=== PATIENT | female | born 1955 | race Hispanic/Latino ===

== ENCOUNTER 2017-12-10 15:22 | Outpatient (CLI) | payer OTHER | END 2017-12-10 15:23 | disposition home or self-care (01) | LOC: BICRAD 15:22 | PROVIDERS: ATTEND Internal Medicine | DX: Z02.71 Encounter for disability determination (principal) | CPT/HCPCS: 72100 ==

== ENCOUNTER 2018-01-28 22:07 | Emergency (ER) | payer BC, SELFPAY ==
[~2018-01-28 22:07] MED LIST: ISOVUE-370 76%-LOCM 1 ML ONE
[2018-01-28 22:48] LABS: Bilirubin Negative (Negative); Blood, Urine Negative (Negative); Clarity CLEAR (Clear); Glucose, Urine (Dipstick) 250 mg/dL (Negative); Leukocyte Negative (Negative); Nitrite Negative (Negative); Protein, Urine (Dipstick) Negative (Neg-Trace); Specific Gravity, Urine 1.013 (1.002-1.036)
[2018-01-28 22:55] LABS: #Eosinphils 0.3 thou/uL (0.0-0.7); #Lymphocytes 1.9 thou/uL (1.20-3.40); #Monocytes 0.3 thou/uL (0.11-0.59); #Neutrophils 4.9 thou/uL (1.40-6.50); %Basophils 0.5 % (0.0-1.0); %Eosinophils 3.5 % (0.0-10.0); %Lymphocytes 25.3 % (21.0-51.0); %Monocytes 4.5 % (0.0-10.0); %Neutrophils 66.2 % (42.0-75.0); Hemoglobin 14.1 g/dL (12.0-16.0); Mean Corpuscular HGB CONC 32.2 g/dL (32.0-36.0); Mean Corpuscular Hemoglobin 28.2 pg (27.0-31.0); Mean Corpuscular Volume 87.3 fL (78.0-98.0); Mean Platelet Volume 7.6 fL (7.4-10.4); Platelet Count 227 thou/uL (130-400); RBC Distribution Width 13.7 % (11.5-14.5); Red Blood Cell (RBC) Count 4.99 mill/uL (4.20-5.40); White Blood Cell (WBC) Count 7.3 thou/uL (4.8-10.8)
[2018-01-28 23:27] LABS: ALT (SGPT) 16 U/L (8-55); AST (SGOT) 21 U/L (5-34); Albumin 3.7 g/dL (3.4-4.8); Alkaline Phosphatase 162 U/L (40-150); Anion Gap 13 mmol/L (10-20); BUN (Urea Nitrogen) 11 mg/dL (9.8-20.1); Bilirubin, Total 0.3 mg/dL (0.2-1.2); Calc. Creatinine Clearance 0 mL/min (70-130); Calcium 9.3 mg/dL (7.8-10.44); Carbon Dioxide 28 mmol/L (23-31); Chloride 100 mmol/L (98-107); Estimated GFR-MDRD 49; Globulin 4.4 g/dL (2.4-3.5); Glucose 157 mg/dL (80-115); Potassium 3.7 mmol/L (3.5-5.1); Protein, Total 8.1 g/dL (6.0-8.3); Sodium 137 mmol/L (136-145)
[2018-01-28] MEDS ORDERED: Ondansetron ODT 8 MG TAB ONE (23:59)
[2018-01-29] MEDS ORDERED: Ketorolac Tromethamine 30 MG/ML VIAL ONE (01:05)
--- NOTE | 2018-01-29 10:56 | CT ---
PRELIMINARY REPORT/[facility]/EMERGENTY AFTER-HOURS PROCEDURE CT Abdomen and Pelvis With Intravenous Contrast CLINICAL HISTORY: 62 years old, female; Pain; Abdominal pain; Patient HX: Pt presents with llq pain that radiates to th e left side of her back for one week. Pt has had nausea with vomiting, but no fever, diarrhea, or uri nary symptoms. Pt was seen in a different er one week ago without definitive diagnosis. Pt reports h/ o kidney stones that she was able to pass on her own. TECHNIQUE: Axial computed tomography images of the abdomen and pelvis with intravenous contrast. Coronal reforma tted images were created and reviewed. COMPARISON: No relevant prior studies available. FINDINGS: Lung bases: No acute findings. ABDOMEN: Liver: No acute findings. No mass. Gallbladder and bile ducts: Prior cholecystectomy. Pancreas: No ductal dilation. No mass. Spleen: No acute findings. No mass. Adrenals: No mass. Kidneys and ureters: No acute findings. No hydronephrosis. No solid mass. Stomach and bowel: Fecal loading. Underdistended rectosigmoid segments. Diverticulosis. No evidence o f bowel obstruction. PELVIS: Appendix: No findings to suggest acute appendicitis. Bladder: No acute findings. No mass. Reproductive: No acute findings. ABDOMEN and PELVIS: Intraperitoneal space: No acute findings. No free air. No significant fluid collection. Bones/joints: No acute fracture. Degenerative changes of the spine. Soft tissues: No acute findings. Vasculature: No acute findings. No abdominal aortic aneurysm. Lymph nodes: No lymphadenopathy. IMPRESSION: No acute findings. Thank you for allowing us to participate in the care of your patient. Dictated and Authenticated by: Anil Hui MD 01/29/2018 1:47 AM Central Time ([place] & [place]) FINAL REPORT ABDOMEN CT WITH CONTRAST PELVIC CT WITH CONTRAST: Date: 01/28/18 HISTORY: Abdominal pain. Left lower quadrant pain. COMPARISON: 10/31/16. FINDINGS: This report is in agreement with the preliminary report by Brad. No acute findings in the abdomen or pelvis. Normal caliber appendix. Scattered fecal material in a nondistended, nondilated colon. POS: [facility]
== END 2018-01-29 02:40 | disposition home or self-care (01) ==
LOC: ERS 22:07
DX: R10.32 Left lower quadrant pain (principal); E11.9 Type 2 diabetes mellitus without complications; I10 Essential (primary) hypertension; F32.9 Major depressive disorder, single episode, unspecified; Z87.442 Personal history of urinary calculi
CPT/HCPCS: 36415; 74177; 80053; 81003; 83690; 85025; 96361; 96374; 96375; J1885; J2270

== ENCOUNTER 2018-02-05 11:51 | Emergency (ER) | payer SELFPAY ==
[2018-02-05] MEDS ORDERED: Morphine 10 MG/ML VIAL ONE (12:12)
[2018-02-05] MEDS ORDERED: Ondansetron ODT 8 MG TAB ONE (12:13)
== END 2018-02-05 12:31 | disposition home or self-care (01) ==
LOC: ERS 11:51
DX: M54.16 Radiculopathy, lumbar region (principal); E11.9 Type 2 diabetes mellitus without complications; I10 Essential (primary) hypertension; F32.9 Major depressive disorder, single episode, unspecified; Z79.899 Other long term (current) drug therapy; Z79.4 Long term (current) use of insulin
CPT/HCPCS: 96372; J2270

== ENCOUNTER 2018-04-10 18:55 | Observation (INO) | payer MEDICAID, SELFPAY ==
[2018-04-10 20:01] LABS: #Eosinphils 0.1 thou/uL (0.0-0.7); #Lymphocytes 2.3 thou/uL (1.20-3.40); #Monocytes 0.5 thou/uL (0.11-0.59); #Neutrophils 6.1 thou/uL (1.40-6.50); %Basophils 0.2 % (0.0-1.0); %Eosinophils 1.3 % (0.0-10.0); %Lymphocytes 24.9 % (21.0-51.0); %Monocytes 5.9 % (0.0-10.0); %Neutrophils 67.7 % (42.0-75.0); Hemoglobin 13.9 g/dL (12.0-16.0); Mean Corpuscular HGB CONC 33.1 g/dL (32.0-36.0); Mean Corpuscular Hemoglobin 28.5 pg (27.0-31.0); Mean Corpuscular Volume 86.2 fL (78.0-98.0); Mean Platelet Volume 8.3 fL (7.4-10.4); Platelet Count 230 thou/uL (130-400); RBC Distribution Width 14.2 % (11.5-14.5); Red Blood Cell (RBC) Count 4.88 mill/uL (4.20-5.40)
[2018-04-10 20:36] LABS: ALT (SGPT) 66 U/L (8-55); AST (SGOT) 89 U/L (5-34); Albumin 3.6 g/dL (3.4-4.8); Alkaline Phosphatase 224 U/L (40-150); Anion Gap 14 mmol/L (10-20); BUN (Urea Nitrogen) 14 mg/dL (9.8-20.1); Bilirubin, Total 0.5 mg/dL (0.2-1.2); Calcium 9.5 mg/dL (7.8-10.44); Carbon Dioxide 23 mmol/L (23-31); Chloride 102 mmol/L (98-107); Glucose 90 mg/dL (80-115); Potassium 3.1 mmol/L (3.5-5.1); Protein, Total 7.6 g/dL (6.0-8.3); Sodium 136 mmol/L (136-145)
[2018-04-10 20:38] LABS: Calc. Creatinine Clearance 0 mL/min (70-130); Estimated GFR-MDRD 50
--- NOTE | 2018-04-10 21:20 | CT ---
NONCONTRAST CT HEAD: 04/10/18 HISTORY: Right sided weakness. Patient states pain as well as tingling right side of body with difficulty spea chanel for two days. COMPARISON: 01/29/15. FINDINGS: There is no evidence of an acute cortical infarction, hemorrhage, mass effect, or midline shift. Vent ricular system is normal in size, shape and position. There has been no interval change compared to t he prior exam. IMPRESSION: No acute intracranial abnormalities demonstrated. POS: [facility]
--- NOTE | 2018-04-10 22:07 | RAD ---
PORTABLE AP CHEST X-RAY 04/10/18 HISTORY: Fever. Pain to right side of body with tingling and difficulty speaking for two days. COMPARISON: 10/29/16. FINDINGS: The right internal jugular vein central venous catheter is no longer visualized. The cardiac silhouet te and pulmonary vasculature are within normal limits for the portable technique of the study. There is mild elevation of the right hemidiaphragm. No other interval change. IMPRESSION: No acute cardiopulmonary process. POS: [facility]
[2018-04-10] MEDS ORDERED: Magnesium Sulfate 2 GM/100 ML BAG ONE (22:42)
[2018-04-10] MEDS ORDERED: Metoclopramide HCl 10 MG/2 ML VIAL ONE (22:42)
[2018-04-10] MEDS ORDERED: Acetaminophen 500 MG TAB ONE (22:42)
[2018-04-10] MEDS ORDERED: Potassium Chloride 40 MEQ in Sodium Chloride 0.9% 250 ML 250 ML IVPB SCH (23:00)
[2018-04-10 23:14] LABS: Bilirubin Negative (Negative); Blood, Urine Negative (Negative); Clarity CLEAR (Clear); Glucose, Urine (Dipstick) Negative (Negative); Leukocyte Negative (Negative); Nitrite Negative (Negative); Protein, Urine (Dipstick) Negative (Neg-Trace); Specific Gravity, Urine 1.012 (1.002-1.036)
[2018-04-11 02:09] VITALS: BMI 50.9
--- NOTE | 2018-04-11 07:59 | ULT ---
CAROTID DUPLEX SONOGRAM: HISTORY: CVA. Vascular disease. FINDINGS: RIGHT: No significant plaque. Color and spectral Doppler evaluation, peak systolic velocity of 61 cm/s, and IC to CC ratio of 0.5 suggests no hemodynamically significant stenosis within the extracranial right ICA. Antegrade flow within the vertebral artery. LEFT: Minimal plaque. Color and spectral Doppler evaluation, peak systolic velocity of 69 cm/s, and IC to CC ratio of 0.8 suggests no hemodynamically significant stenosis within the extracranial left ICA. A ntegrade flow within the vertebral artery. IMPRESSION: Minimal plaque. No sonographic evidence of significant intracranial internal carotid artery stenosis . POS: [facility]
[2018-04-11] MEDS ORDERED: Aspirin 325 MG TAB PO SCH ×2 (10:01→10:15)
[2018-04-11] MEDS ORDERED: Dextrose 50% Abboject 50 ML SYRINGE SLOW IVP PRN (10:02)
[2018-04-11] MEDS ORDERED: HumaLOG 300 UNITS/3 ML VIAL SC PRN (10:02)
[2018-04-11] MEDS ORDERED: Dextrose 5% in Water 1,000 ML IV PRN (10:02)
[2018-04-11] MEDS ORDERED: Gabapentin 300 MG CAP PO SCH (10:15)
[2018-04-11] MEDS ORDERED: TROSPIUM 20 MG TABLET PO SCH (10:15)
[2018-04-11] MEDS ORDERED: Lorazepam 2 MG/ML VIAL SLOW IVP SCH (10:15)
[2018-04-11] MEDS ORDERED: Amlodipine 10 MG TAB PO SCH (10:15)
[2018-04-11 11:49] LABS: ALT (SGPT) 54 U/L (8-55); AST (SGOT) 48 U/L (5-34); Albumin 3.6 g/dL (3.4-4.8); Alkaline Phosphatase 207 U/L (40-150); Anion Gap 13 mmol/L (10-20); BUN (Urea Nitrogen) 12 mg/dL (9.8-20.1); Bilirubin, Total 0.7 mg/dL (0.2-1.2); Calc. Creatinine Clearance 120 mL/min (70-130); Calcium 9.1 mg/dL (7.8-10.44); Carbon Dioxide 25 mmol/L (23-31); Chloride 101 mmol/L (98-107); Cholesterol 198 mg/dl (< 200 Desired); Estimated GFR-MDRD 56; Glucose 402 mg/dL (80-115); HDL Cholesterol 49 mg/dL (>60 Neg Risk); LDL Cholesterol, Calculated 116 mg/dL; Potassium 4.1 mmol/L (3.5-5.1); Protein, Total 7.6 g/dL (6.0-8.3); Sodium 135 mmol/L (136-145); Triglycerides 167 mg/dL (Less than 150)
[2018-04-11 12:08] LABS: HBCM Index 0.08 S/CO (0-0.79); HBSAg Index 0.27 S/CO (0-0.99); Hep A IgM AB Non-Reactive (NonReactive); Hep A IgM S/CO 0.09 S/CO (0-0.79); Hep B Surf Ag Non-Reactive S/CO (NonReactive); Hep C IgG Ab Non-Reactive (NonReactive); Hep C Index 0.08 S/CO (0-0.79); Hepatitis B Core IGM Abs Non-Reactive (NonReactive)
[2018-04-11] MEDS ORDERED: Phenylephrine HCL 10 MG/ML VIAL ONE (12:24)
[2018-04-11] MEDS ORDERED: Ketorolac Tromethamine 30 MG/ML VIAL IVP SCH (12:30)
[2018-04-11] MEDS: HumaLOG 300 UNITS/3 ML VIAL SC PRN ×3 (12:45→21:32)
--- NOTE | 2018-04-11 13:21 | HP ---
DATE OF ADMISSION: 04/11/2018 CHIEF COMPLAINT: Left extremity pain, numbness and decreased sensation of right upper and lower extremities. HISTORIAN: The patient and reliable. HISTORY OF PRESENT ILLNESS: This is a 62-year-old female with past medical history of diabetes mellitus type 2, kidney stones in the past, hypertension, fibromyalgia, degenerative disk disease, presenting with shooting burning sensation in the right upper and lower extremities which started the night prior to admission. The patient states that the pain was sudden, numbness, 10/ 10 in severity. The patient stated that she has not lifted anything heavy. The pain was just continuous and it is associated with right upper and lower extremity weakness. The patient had a fever of 101. The patient took Tylenol for the fever. The patient states that she feels that something is not right. The patient has associated symptoms of headaches, photophobia and just generalized pain. REVIEW OF SYSTEMS: Positive for generalized pain, shortness of breath, headaches, photophobia, otherwise as stated in the HPI. All other systems are reviewed and are negative. PAST MEDICAL HISTORY: Significant for diabetes mellitus type 2, kidney stones, hypertension, fibromyalgia, degenerative disk disease. PAST SURGICAL HISTORY: Cholecystectomy, , hysterectomy. PSYCHIATRIC HISTORY: The patient has a history of depression. SOCIAL HISTORY: The patient lives with spouse. Denies alcohol, drugs and smoking history. ALLERGIES: The patient is allergic to SULFA. CURRENT MEDICATIONS: Acetaminophen, amitriptyline, , Humulin 70/30, ropinirole, tizanidine, Lasix, levothyroxine. PHYSICAL EXAMINATION: VITAL SIGNS: Blood pressure in the ED 135/83, pulse 87, respiratory rate of 20 , temperature of 100, O2 sat 92 on room air. GENERAL APPEARANCE: The patient is an obese female, speaking in complete sentences, lying comfortably in bed. HEENT: Normocephalic, atraumatic. Pupils are equal, round and reactive to light. Extraocular movements are intact. No scleral icterus. NECK: Supple. No JVD. Mucous membranes are moist. LUNGS: Clear to auscultation bilaterally with no wheezing, no rales, no rhonchi appreciated. CARDIOVASCULAR: Positive S1, S2. Regular rate and rhythm. No murmurs, no rubs , no gallops appreciated. ABDOMEN: Obese abdomen, nondistended, no tenderness. Positive bowel sounds. EXTREMITIES: Upper extremities, the patient does have generalized tenderness with palpation. The patient has 5/5 upper extremities strength bilaterally, some decreased strength at the right arm. Lower extremities, presumed to have bilateral weakness of the lower extremities due to tenderness; however, the patient had good pulses bilaterally. IMAGIN. CT of the head negative for any acute intracranial abnormality. 2. Dopplers negative for any significant stenosis. LABORATORY FINDINGS: Pertinent positives, potassium is 3.1, alkaline phosphatase is 224, AST is 89, ALT 69. ASSESSMENT AND PLAN: 1. This is a 62-year-old female with significant history of fibromyalgia, being admitted for right upper and lower extremity weakness and numbness. At this point, the patient's symptoms are concerning for cerebrovascular accident. Therefore, we will rule out cerebrovascular accident. CT of the head has been negative MRI of the head and MRA. We will follow up on that. We have consulted Nephrology. We will follow up with Nephrology consult. We will start the patient on atorvastatin. Continue the patient on aspirin. 2. Generalized pain, likely due to fibromyalgia. We will continue the patient on home medications and we will monitor the patient. 3. Hypertension, uncontrolled. We will continue the patient on home medication and we will do hydralazine p.r.n. for elevated blood pressures. 4. Diabetes mellitus. We will continue the patient's home medications and insulin sliding scale. This case has been dictated by Dr. Johnathon Pan on patient Allegra Potts. [facility]OR[facility]
--- NOTE | 2018-04-11 14:36 | MRI ---
BRAIN MRI WITHOUT CONTRAST: Date: 04/11/18 HISTORY: Numbness, tingling. Transient ischemic attack. Slurred speech x2 days. COMPARISON: None. TECHNIQUE: Brain MRI is performed without intravenous Gadolinium administration. Multisequential, multiplanar im aging is performed. FINDINGS: Evaluation is limited by motion degradation. No hemorrhage on the axial gradient echo sequence. No parenchymal mass, mass effect, or midline shift. Age-appropriate atrophy. Cortical nj-white bethanie er differentiation is preserved. Ventricles and sulci are patent and symmetric. No significant T2 or FLAIR white matter hyperintensities. Calvarium has a normal marrow signal intensity. Midline brain parenchymal structures are unremarkable . Adequate aeration of the sinuses and mastoid air cells. Central arterial flow-voids are maintained. Absent restricted diffusion. IMPRESSION: Absent restricted diffusion. No acute infarct. POS: [facility]
--- NOTE | 2018-04-11 15:08 | PDOC.PN ---
- Subjective Encounter Start Date: 04/11/18 Encounter Start Time: 10:30 Subjective: pt up in bed eating complains of weakness or right upper and lower ext - Objective Vital Signs & Weight: Vital Signs (12 hours) Temp Pulse Resp BP Pulse Ox 04/11/18 12:00 98.3 F 95 20 155/84 H 93 L 04/11/18 10:24 94 04/11/18 08:00 98.7 F 94 20 176/109 H 92 L 04/11/18 04:30 97.9 F 81 18 151/83 H 94 L Weight Weight 287 lb 8 oz I&O: 04/10/18 04/11/18 04/12/18 06:59 06:59 06:59 Intake Total 490 Balance 490 Result Diagrams: 04/10/18 19:53 04/11/18 11:14 Additional Labs: Accuchecks 04/11/18 04/10/18 12:02 20:10 POC Glucose 314 H 103 Phys Exam - Physical Examination Respiratory: no wheezing, no rales, no rhonchi, wheezing present, clear to auscultation bilateral Cardiovascular: RRR, no significant murmur, no rub, gallop, irregular Gastrointestinal: soft, non-tender, no distention, positive bowel sounds Musculoskeletal: no edema, pulses present, edema present pt up in bed eating, has pain to his cervical area and lumbar area pt has weakness to right lower and right upper Psychiatric: normal affect, A&O x 3 Dx/Plan (1) TIA (transient ischemic attack) Code(s): G45.9 - TRANSIENT CEREBRAL ISCHEMIC ATTACK, UNSPECIFIED Status: Acute (2) Cervical radicular pain Code(s): M54.12 - RADICULOPATHY, CERVICAL REGION Status: Acute (3) Morbid obesity with BMI of 50.0-59.9, adult Code(s): E66.01 - MORBID (SEVERE) OBESITY DUE TO EXCESS CALORIES; Z68.43 - BODY MASS INDEX (BMI) 50-59.9 , ADULT Status: Chronic (4) Diabetes type 2, controlled Code(s): E11.9 - TYPE 2 DIABETES MELLITUS WITHOUT COMPLICATIONS Status: Chronic - Plan pt's mri brain is negative, in exam she has significant pain to her -: cervical and lumbar area. will get cervical and lumbar xray -: echo pending, carotid doppler mild stenosis * . Review of Systems - Review of Systems Respiratory: negative: Cough, Dry, Shortness of Breath, Hemoptysis, SOB with Excertion, Pleuritic Pain, Sputum, Wheezing Cardiovascular: negative: chest pain, palpitations, orthopnea, paroxysmal nocturnal dyspnea, edema, light headedness, other Gastrointestinal: negative: Nausea, Vomiting, Abdominal Pain, Diarrhea, Constipation, Melena, Hematochezia, Other Genitourinary: negative: Dysuria, Frequency, Incontinence, Hematuria, Retention , Other Musculoskeletal: Neck Pain, Other (cervical area tenderness) - Medications/Allergies Allergies/Adverse Reactions: Allergies Allergy/AdvReac Type Severity Reaction Status Date / Time Sulfa (Sulfonamide Allergy Unknown Verified 04/11/18 02:49 Antibiotics) Medications: Current Medications Amitriptyline HCl (Elavil) 50 mg PO HS [facility] Amlodipine Besylate (Norvasc) 10 mg PO DAILY [facility] Aspirin (Aspirin) 325 mg PO DAILY [facility] Atorvastatin Calcium (Lipitor) 80 mg PO HS [facility] Dextrose/Water (Dextrose 50%) 25 gm SLOW IVP PRN PRN PRN Reason: Hypoglycemia Gabapentin (Neurontin) 600 mg PO DAILY [facility] Glucagon (Glucagon) 1 mg IM PRN PRN PRN Reason: Hypoglycemia Dextrose/Water (D5w) 1,000 mls @ 0 mls/hr IV .Q0M PRN PRN Reason: Hypoglycemia Insulin Glargine 15 units/ (Miscellaneous Medication) 0.15 mls @ 0 mls/hr SC HS [facility] Insulin Glargine 15 units/ (Miscellaneous Medication) 0.15 mls @ 0 mls/hr SC QAM [facility] Insulin Human Lispro (Humalog) 0 units SC .MODERATE SLIDING SC PRN; Protocol PRN Reason: MODERATE SLIDING SCALE Last Admin: 04/11/18 12:45 Dose: 8 unit Ketorolac Tromethamine (Toradol) 15 mg IVP ONE [facility] Stop: 04/11/18 18:00 Last Admin: 04/11/18 12:46 Dose: 15 mg Pantoprazole Sodium (Protonix) 40 mg PO Q12HR [facility] Pneumococcal Polyvalent Vaccine (Pneumovax 23) 0.5 ml IM .ONCE ONE Stop: 04/12/18 09:01 Ropinirole HCl (Requip) 2 mg PO QPM [facility] Sertraline HCl (Zoloft) 100 mg PO DAILY [facility] Sodium Chloride (Flush - Normal Saline) 10 ml IVF Q12HR [facility] Sodium Chloride (Flush - Normal Saline) 10 ml IVF PRN PRN PRN Reason: Saline Flush Tizanidine HCl (Zanaflex) 4 mg PO HS [facility] Trospium (Trospium) 20 mg PO BID [facility]
--- NOTE | 2018-04-11 15:31 | RAD ---
EIGHT VIEWS CERVICAL SPINE: HISTORY: Right arm pain. Cervicalgia. COMPARISON: None. FINDINGS: On the AP projection, no evidence of malalignment. The right neural foramina are patent. There is moderate left foraminal narrowing at C2-C3. In the neutral position, there is mild straightening of the normal cervical lordosis. There is minim al anterolisthesis of C3 upon C4 and C4 upon C5. There is osteophyte formation at C5-C6. The remain danita of the cervical spine cannot adequately be assessed on the lateral neutral projection. Upon exte nsion and flexion, no abnormal motion. The swimmer's view is suboptimal. IMPRESSION: Limited evaluation of the cervical spine. No evidence of severe loss of disk space height. There is moderate left foraminal narrowing at C2-C3. Additional imaging as warranted. POS: [facility]
--- NOTE | 2018-04-11 15:32 | RAD ---
THREE VIEWS OF THE LUMBOSACRAL SPINE: COMPARISON: 08/03/11. HISTORY: Low back pain. FINDINGS: AP, lateral, and coned-down views of the lumbosacral spine show normal height and alignment of the ve rtebral bodies without fracture or subluxation. The L4-5 and L5-S1 intervertebral disks have decreas ed in height, which is new compared to the prior examination. IMPRESSION: Likely degeneration of the intervertebral disks at L4-5 and L5-S1 since the prior examination. No ac cahto abnormality identified. POS: [facility]
[2018-04-11] MEDS ORDERED: Non-Formulary Item 1 EACH (Tizanidine Hcl [Tizanidine Hcl] 4 MG) PO SCH (21:00)
[2018-04-11] MEDS ORDERED: rOPINIRole HCl 2 MG TAB PO SCH (21:00)
[2018-04-11] MEDS ORDERED: Atorvastatin Calcium 40 MG TAB PO SCH (21:00)
[2018-04-11] MEDS ORDERED: Insulin Glargine 15 UNITS in Pre-Filled Syringe 1 EACH SC SCH (21:00)
[2018-04-11] MEDS ORDERED: Insulin NPH/Reg Insulin Hm 300 UNITS/3 ML VIAL SC SCH (21:00)
[2018-04-11] MEDS ORDERED: Non-Formulary Item 1 EACH (Amitriptyline Hcl [Amitriptyline Hcl] 50 MG) PO SCH (21:00)
[2018-04-11] MEDS ORDERED: Amitriptyline HCl 25 MG TAB PO SCH (21:00)
[2018-04-11] MEDS ORDERED: tiZANidine HCl 4 MG TAB PO SCH (21:00)
[2018-04-11] MEDS: TROSPIUM 20 MG TABLET PO SCH (21:24)
[2018-04-11] MEDS: Acetaminophen/Codeine 30-300mg Tablet PO PRN (22:04)
--- NOTE | 2018-04-12 01:07 | CON ---
DATE OF CONSULTATION: 04/11/2018 REFERRING PHYSICIAN: Johnathon Pan DO REASON FOR CONSULTATION: Right-sided paresthesia. HISTORY OF PRESENT ILLNESS: Ms. Dinh is a pleasant 62-year-old female, who has been consulted for evaluation of right-sided paresthesia. The patient reports that she has been having neck pain and back pain for several years. She notes that over the past one month, she has been having increasing numbness, tingling, and pain in the right upper and right lower extremity. This pain originates from the side of the shoulder all the way down to the fingertips, as well as from hips down to toenails. She reports that she has history of neck and back pain for many years; however, over the past few months , has been gradually getting worse. She has noted that due to pain, she is not able to move her right upper extremity as well as move right lower extremity. She has difficulty with walking and balance, and she feels weak on her right side. PAST MEDICAL HISTORY: Significant for hypertension, diabetes, kidney stones, fibromyalgia, and degenerative disk disease. PAST SURGICAL HISTORY: Significant for cholecystectomy, , and hysterectomy. SOCIAL HISTORY: She lives by herself. She denies smoking, alcohol use, or illicit drug use. CURRENT MEDICATIONS: Please review MAR. ALLERGIES: Include SULFA DRUGS. REVIEW OF SYSTEMS: As mentioned above in HPI, otherwise negative. PHYSICAL EXAMINATION: VITAL SIGNS: Blood pressure of 184/101, pulse of 81, temperature of 98.5, respirations of 16, O2 sats 92% on room air. GENERAL: Well-developed, well-nourished female in no apparent distress. RESPIRATORY: Clear to auscultation bilaterally. CARDIOVASCULAR: Regular rate and rhythm. NEUROLOGIC: Mental status: The patient is awake, alert, oriented x3. Speech and language: Fluent speech. Cranial nerves: Pupils are 3 mm and reactive. Visual garcia are intact. Extraocular muscles are intact. No nystagmus noted. Face is symmetric. Tongue and uvula are midline. Motor exam showed normal tone and bulk with 5/5 strength in both upper and lower extremities. She has tenderness to palpation in the neck and hip area. Sensory: Sensation is intact and symmetric. Deep tendon reflexes are hyporeflexic throughout. Babinski: Plantar responses flexion bilaterally. Coordination intact to finger -nose-finger and finger tapping bilaterally. LABORATORY DATA: Reviewed which included CBC, CMP, urinalysis, which is significant for glucose of 402, AST of 48, alkaline phosphatase of 207, otherwise negative. IMAGING STUDIES: MRI brain without contrast was reviewed, which showed no acute intracranial abnormality. IMPRESSION: 1. Right-sided paresthesia. 2. Cervical spondylosis. 3. Malignant hypertension. Ms. Dinh is a pleasant 62-year-old female with chronic history of neck and back pain, which are likely contributing to her recent right-sided paresthesia. At this time, I will recommend the patient needs outpatient followup to neurosurgery clinic as well as pain management to help her pain control. No further neurological workup needed from my standpoint. Thank you for consultation. JASON
[2018-04-12] MEDS: HumaLOG 300 UNITS/3 ML VIAL SC PRN ×2 (06:10→11:58)
[2018-04-12] MEDS: Acetaminophen/Codeine 30-300mg Tablet PO PRN (08:39)
[2018-04-12] MEDS: TROSPIUM 20 MG TABLET PO SCH (08:40)
[2018-04-12] MEDS ORDERED: Amlodipine 10 MG TAB PO SCH (09:00)
[2018-04-12] MEDS ORDERED: Insulin Glargine 15 UNITS in Pre-Filled Syringe 1 EACH SC SCH (09:00)
[2018-04-12] MEDS ORDERED: Non-Formulary Item 1 EACH (Gabapentin [Gabapentin] 600 MG) PO SCH (09:00)
[2018-04-12] MEDS ORDERED: Gabapentin 300 MG CAP PO SCH (09:00)
[2018-04-12] MEDS ORDERED: Tolterodine Tartrate LA 4 MG CAP PO SCH (09:00)
[2018-04-12] MEDS ORDERED: Aspirin 325 MG TAB PO SCH (09:00)
--- NOTE | 2018-04-12 11:46 | DIS ---
DATE OF ADMISSION: 04/11/2018 DATE OF DISCHARGE: 04/12/2018 ADMITTING DIAGNOSIS: Transient ischemic attack. DISCHARGE DIAGNOSES: Cervical spondylolysis. SECONDARY DIAGNOSES: 1. Morbid obesity. 2. Type 2 diabetes mellitus. 3. Hyperlipidemia 4. Hypertension. INVESTIGATIONS DONE DURING THIS ADMISSION: MRI of the brain was unremarkable. CT of the head was un remarkable. X-ray of the cervical spine showed mild degenerative changes in the cervical spine from C1-C2. Otherwise, no acute fractures. CONSULTANTS INVOLVED IN THE CARE: Dr. Portillo from Neurology. HISTORY OF PRESENT ILLNESS/HOSPITAL COURSE: In brief, this is a 62-year-old female, morbidly obese w ith type 2 diabetes mellitus, and a history of kidney stones in the past, presented with hypertension and a history of fibromyalgia. The patient presented with sudden onset of numbness and 10/10 intensity of pain in the left arm and t he patient was unable to lift anything heavy. The patient's pain was continuous and is associated wi th right upper and lower extremity weakness. The patient also had a fever of 101. Patient took Tyle nol for the fever. The patient also had some weakness and generalized pain. The patient was admitte d and had neuro checks q.4 hours and the following day had MRI of the head and MRA of the head and ne ck which did not show any evidence of neurologic compromise or no evidence of stroke. As the patient was pretty atypical on the right side and has a history of fibromyalgia, the patient most likely has a neuropathic pain or cervical spondylolysis, which was not very clear on the x-rays and advised th e patient that she would need a follow up with Neurosurgery or the pain clinic for possible cervical steroids. The patient was discharged home after reassuring and she was stable on the day of discharg e. PHYSICAL EXAMINATION: On date of discharge: VITAL SIGNS: Blood pressures are 140/90, heart rate is 86, respiratory rate 18, saturation 98%. GENERAL: The patient is morbidly obese. She is alert and oriented. HEENT: Atraumatic, normocephalic, PERRLA. Extraocular muscles were intact. Mucosa is pink and moist . CARDIOVASCULAR: S1, S2 normal. No murmurs, rubs or gallops. LUNGS: Bilateral air entry was equal. No wheezing, no crackles. ABDOMEN: Soft, nontender, no guarding, no rebound tenderness. Bowel sounds normal. MUSCULOSKELETAL: No calf tenderness. No pedal edema. No joint tenderness, no joint swelling. Her right upper extremity has definitely weakness and constant pain with paresthesias, but is relieved wi th narcotics. DISCHARGE MEDICATIONS: 1. Insulin. 2. Sertraline/Zoloft. 3. Amitriptyline 50 mg p.o. at bedtime. 4. Amlodipine 10 mg p.o. daily. 5. Aspirin 81 mg p.o. daily. 6. Atorvastatin 20 mg p.o. daily. 7. Lasix 40 mg p.o. daily. 8. Gabapentin 600 mg p.o. daily. 9. Pantoprazole. 10. Ropinirole. 11. Tizanidine. 12. Detrol. DISCHARGE INSTRUCTIONS: Follow up with primary care physician in 1 week. PLAN: 1. The plans are to have her referred to Neurosurgery. 2. The patient will continue on the aspirin and atorvastatin as she is high risk for coronary artery disease and strokes with being diabetic and morbidly obese. 3. Continue diabetic diet. ACTIVITY: As tolerated. I spent 35 minutes with this patient on the day of discharge.
[2018-04-12 12:07] VITALS: BP 104/60; TEMP 98.2
--- NOTE | 2018-04-13 19:41 | EKG ---
Test Reason : Blood Pressure : / mmHG Vent. Rate : 091 BPM Atrial Rate : 091 BPM P-R Int : 122 ms QRS Dur : 086 ms QT Int : 370 ms P-R-T Axes : 007 -15 038 degrees QTc Int : 455 ms Normal sinus rhythm Possible Anterior infarct , age undetermined Abnormal ECG Confirmed by DENZEL GARDNER M.D. ([id number]), magazine editor JULISSA HERMAN ([id number]) on 04/13/2018 7:40:30 PM Referred By: Confirmed By:DENZEL GARDNER M.D.
== END 2018-04-12 12:56 | disposition home or self-care (01) ==
LOC: ERS 18:55 → 2SE 04-11 00:16
PROVIDERS: ADMIT Internal Medicine; ATTEND Internal Medicine
DX: M47.22 Other spondylosis with radiculopathy, cervical region (principal); M79.601 Pain in right arm; M79.604 Pain in right leg; M79.602 Pain in left arm; E11.9 Type 2 diabetes mellitus without complications; I10 Essential (primary) hypertension; M79.7 Fibromyalgia; E66.01 Morbid (severe) obesity due to excess calories; Z68.43 Body mass index [BMI] 50.0-59.9, adult; Z79.4 Long term (current) use of insulin; Z79.899 Other long term (current) drug therapy; Z88.2 Allergy status to sulfonamides
CPT/HCPCS: 36415; 36416; 70450; 70551; 71045; 72052; 72100; 80053; 80061; 80074; 81003; 83735; 85025; 93005; 93306; 93880; 96365; 96367; 96368; 96375; G0378; J1885; J2060; J2370; J2765; J3475; J3480; J7050